=== PATIENT | female | born 1965 | race Caucasian/White ===

== ENCOUNTER 2017-08-07 20:03 | Emergency (ER) | payer MEDICARE ==
[~2017-08-07] VITALS: Ht 167.6 cm; Wt 95.3 kg
[2017-08-07] MEDS ORDERED: LEXAPRO10 MG PO (22:14)
[2017-08-07] MEDS ORDERED: LITHIUM CARBON300 MG PO (22:14)
[2017-08-07] MEDS ORDERED: SERAX PO (22:14)
[2017-08-07] MEDS ORDERED: CLINDAMYCIN PHOS 600 MG/ 4 ML VIAL IM ONE (23:15)
[2017-08-07] MEDS ORDERED: KETOROLAC TROMETHAMINE 60 MG/2 ML VIAL IM ONE (23:15)
[2017-08-07 23:34] VITALS: BP 166/95
== END 2017-08-07 23:30 | disposition home or self-care (01) ==
LOC: FSED 20:03
DX: R68.84 Jaw pain (principal); K08.9 Disorder of teeth and supporting structures, unspecified; K04.7 Periapical abscess without sinus
CPT/HCPCS: 99282